=== PATIENT | male | born 1960 | race Caucasian/White ===

== ENCOUNTER → 2023-10-09 10:43 | Outpatient (REF) | payer OTHER, SELFPAY | LOC: PAVMRI 10:43 | PROVIDERS: ATTENDING PHYSICIAN Internal Medicine Rheumatology; FAMILY PHYSICIAN Family Medicine | DX: M31.6 Other giant cell arteritis (principal) | CPT/HCPCS: 71555 ==

== ENCOUNTER → 2023-10-11 10:46 | Outpatient (REF) | payer OTHER, SELFPAY | LOC: PAVMRI 10:46 | PROVIDERS: ATTENDING PHYSICIAN Internal Medicine Rheumatology; FAMILY PHYSICIAN Family Medicine | DX: M31.6 Other giant cell arteritis (principal) | CPT/HCPCS: 72198; 74185; A9585 ==

== ENCOUNTER → 2024-11-27 12:34 | Outpatient (REF) | payer OTHER, SELFPAY | LOC: PAVMRI 12:34 | PROVIDERS: ATTENDING PHYSICIAN Internal Medicine Rheumatology; FAMILY PHYSICIAN Family Medicine | DX: M31.6 Other giant cell arteritis (principal); I77.6 Arteritis, unspecified | CPT/HCPCS: 71555; A9585 ==

== ENCOUNTER → 2024-11-28 11:36 | Outpatient (REF) | payer OTHER, SELFPAY | LOC: PAVMRI 11:36 | PROVIDERS: ATTENDING PHYSICIAN Internal Medicine Rheumatology; FAMILY PHYSICIAN Family Medicine | DX: I77.6 Arteritis, unspecified (principal); M31.6 Other giant cell arteritis | CPT/HCPCS: 72197; 72198; 74183; 74185; A9585 ==